=== PATIENT | male | born 1945 | race Caucasian/White ===

== ENCOUNTER 2023-05-17 06:28 | Day surgery (SDC) | payer MEDICARE ==
[~2023-05-17] VITALS: Ht 188 cm; Wt 100.0 kg
[~2023-05-17 06:28] MED LIST: AVAPRO300 MG PO; JANTOVEN4 MG PO; LOVASTATIN10 MG PO; NEBIVOLOL HCL5 MG PO
[2023-05-17 06:59] LABS: BILIRUBIN, URINE POSITIVE (negative); BLOOD/HGB, URINE SMALL (Negative); KETONE, URINE SMALL (Negative); LEUK ESTERASE, URINE NEGATIVE (negative); NITRITE, URINE NEGATIVE (negative); PH, URINE 5.5 (5-7)
[2023-05-17 07:05] LABS: BACTERIA, URINE RARE /hpf (negative); COLLECTION TYPE, URINE CLEAN CATCH; CRYSTALS, URINE NONE SEEN (0-1+); EPITHELIAL CELLS, URINE NS /lpf (0-1+); RED BLOOD CELLS, URINE 0-1 /hpf (0-5); WHITE BLOOD CELLS, URINE 0-1 /HPF (0-5)
[2023-05-17 07:06] LABS: REFLEX CULTURE, URINE No (No)
[2023-05-17 07:07] LABS: CASTS, URINE GRANULAR 1+ \\lpf
[2023-05-17 07:18] LABS: BASOPHILS 1.3 % (0-2); EOSINOPHILS 1.2 % (0-6); HEMOGLOBIN 12.8 g/dL (12.0-18.0); LYMPHOCYTES 7.6 % (24-44); MCH 31.5 (27-36); MCHC 32.8 g/dl (30-36); MCV 96.2 fl (81-99); MONOCYTES 6.5 % (0-12); NEUTROPHILS 83.4 % (39-80); PLATELET COUNT 164 K/uL (140-440); RBC 4.05 M/ul (4.3-5.7); RDW 14.2 (10.5-15.0)
[2023-05-17 07:25] VITALS: BP 148/75
[2023-05-17 07:27] LABS: ANION GAP 14.8 (7-21); BUN/CREATININE RATIO 14.96 (6.0-28.6); CALCIUM 9.6 mg/dL (8.5-10.1); CREATININE, SERUM 1.27 mg/dL (0.70-1.30); POTASSIUM 3.8 mmol/L (3.5-5.1)
[2023-05-17 07:30] LABS: INR 1.05 (0.80-1.30); PROTIME 13.2 Sec (11.2-14.2)
--- NOTE | 2023-05-17 07:54 | NUR ---
RESTING IN BED WITH EYES CLOSED. DID NOT DISTURB. PRAYED SILENT PRAYER FOR SUCCESSFUL PROCEDURE AND ONGOING HEALING.
--- NOTE | 2023-05-17 10:49 | NUR ---
05/17/23 1049 Rasheeda Brooks 1004 PT ARRIVED IN PACU WIDE AWAKE WITH NO C/O'S. 1010 C/O URGE TO VOID. URINAL GIVEN AND VOIDED 150ML CLEAR YELLOW URINE. 1020 PT VISITING WITH STAFF. 1034 TO DS. REPORT GIVEN TO RN.
[2023-05-17 10:51] VITALS: BP 126/61
--- NOTE | 2023-05-17 11:01 | NUR ---
1034: PT BACK TO DS RM 7 FROM PACU AWAKE AND ALERT. PT DENIES ANY PAIN OR NAUSEA ON ARRIVAL, PROVIDED ICED WATER. PT HAS URINAL IN PLACE WITH WASHCLOTH UNDER, STATES URGE TO VOID. DC CRITERIA EXPLAINED TO PT, CALL LIGHT WITHIN REACH. WILL PLAN TO CALL SPOUSE.
[2023-05-17 11:40] VITALS: BP 135/65
--- NOTE | 2023-05-17 12:09 | NUR ---
1140: PT SPOUSE IN ROOM AT BEDSIDE. PT CONT TO DENY ANY PAIN OR NAUSEA AND TOLERATES WATER BUT DOES NOT WANT ANYTHING TO EAT, STATES "I WANT A HAMBURGER ON THE WAY HOME!" PT SITS AT SIDE OF BED PRIOR TO STANDING, DENIES DIZZINESS WITH POSITION CHANGE AND AMBULATES WITH STEADY GAIT TO BATHROOM. PT BACK TO DS RM 7 FROM BATHROOM TO GET DRESSED, ENC TO OPEN CURTAIN WHEN FINISHED. 1155: PT OPENS CURTAIN AND SPOUSE EXITS TO PULL CAR TO HOSPITAL ENTRANCE. DC INSTRUCTIONS PRESENTED VERBALLY AND WRITTEN, Daniel ELENA RN PUSHES PT OUT TO PERSONAL CAR VIA WC TO HOME.
--- NOTE | 2023-05-17 12:47 | OR ---
[facility] [address] [place], [place] [address] Signed DATE OF OPERATION: 05/17/2023 SURGEON: Angel Reed MD PREOPERATIVE DIAGNOSIS: Prostate cancer with need for diagnostic cystoscopy after brachytherapy seed placement. POSTOPERATIVE DIAGNOSES: 1. Prostate cancer with need for diagnostic cystoscopy after brachytherapy seed placement. 2. No evidence of brachytherapy seed present within the bladder or within the entire length of the urethra. NAME OF PROCEDURE: Diagnostic cystoscopy. ANESTHESIA: General. ESTIMATED BLOOD LOSS: None. COMPLICATIONS: None. DRAINS: None. INDICATIONS FOR PROCEDURE: Mr. Duran is a 77-year-old gentleman, who is currently undergoing brachytherapy seed placement for treatment of his prostate cancer. Dr. Drew has asked me to perform a diagnostic cystoscopy after brachytherapy seed placement to ensure there are no radioactive seeds present within the bladder or urethra. OPERATIVE FINDINGS: 1. On cystoscopy, there was no evidence of any suspicious masses, lesions, or stones. Bilateral ureteral orifices are in their normal anatomic location. There is grade 1 bladder wall trabeculation present. There is no evidence of brachytherapy seeds either within the bladder or the entire length of the urethra. 2. Urethroscopy reveals a very short nonobstructing prostate. There was no evidence of Electronically Signed By: ANGEL REED MD 05/17/23 1247 PATIENT NAME: CARLITOS FREDERICK OPERATIVE REPORT DATE OF : 47 REPORT #: [id number] PHYSICIAN: ANGEL REED MD PCP: SELVIN GIRON REPORT IS CONFIDENTIAL AND NOT TO BE RELEASED WITHOUT AUTHORIZATION [facility] [address] [place], [place] [address] Signed any median lobe or significant lateral lobe hypertrophy. DESCRIPTION OF PROCEDURE: After informed consent was obtained, the patient was already in the dorsal lithotomy position after completing his brachytherapy seed placement. His genitalia were prepped and draped in a standard sterile fashion. A flexible cystoscope was inserted through his urethra and into his bladder under direct visualization. Panendoscopic views of bladder were then obtained. Please see the above findings. Once I thoroughly inspected the bladder, I slowly withdrew the cystoscope and visualized the entire length of the patient's urethra. I removed the scope and the procedure was complete. He tolerated this portion of the procedure well without any complication. He will now be transferred to the postanesthesia care unit in a stable condition. MD MARLENY Campbell/COREY /[id number] Copies: ~ Electronically Signed By: ANGEL REED MD 05/17/23 1247 PATIENT NAME: CARLITOS FREDERICK OPERATIVE REPORT DATE OF : 47 REPORT #: [id number] PHYSICIAN: ANGEL REED MD PCP: SELVIN GIRON REPORT IS CONFIDENTIAL AND NOT TO BE RELEASED WITHOUT AUTHORIZATION
--- NOTE | 2023-05-18 12:49 | OR ---
[facility] [address] [place] [place] [address] Signed DATE OF OPERATION: 05/17/2023 SURGEON: Annie Quevedo MD, PH.D. PREOPERATIVE DIAGNOSIS: Prostate adenocarcinoma. POSTOPERATIVE DIAGNOSIS: Prostate adenocarcinoma. PROCEDURE: Rectal ultrasound-guided implantation of radioactive iodine-125 seeds into the prostate gland. ANESTHESIA: General. ESTIMATED BLOOD LOSS: Minimal. COMPLICATIONS: None. ANTIBIOTICS: IV levofloxacin. INDICATIONS: Sander Sharif is a 77-year-old gentleman, who was diagnosed with a stage T2a, Tabitha grade 4 + 4 = 8, PSA 9.46, prostate adenocarcinoma. He was treated with neoadjuvant, concurrent, and adjuvant hormone therapy along with external beam radiation to the pelvic lymph nodes, seminal vesicles, and prostate gland to a dose of 45 Gy in [address] Gauthier ending on March 27, 2023. He now presents for a radioactive seed implant boost to the prostate gland. PRESCRIPTION DOSE: 110 Gy with iodine-125 seeds with 0.258 millicurie seeds. OPERATIVE DESCRIPTION: Following induction of adequate anesthesia, the patient was placed in the treatment planning dorsal lithotomy position. The perineum was prepped with Betadine and a Garcia Electronically Signed By: ANNIE QUEVEDO 05/18/23 1249 PATIENT NAME: SANDER SHARIF OPERATIVE REPORT DATE OF : 47 REPORT #: [id number] PHYSICIAN: ANNIE QUEVEDO PCP: SELVIN GIRON REPORT IS CONFIDENTIAL AND NOT TO BE RELEASED WITHOUT AUTHORIZATION [facility] [address] [place], [place] [address] Signed catheter was inserted into the bladder without difficulty. The scrotum was elevated onto the abdominal wall and secured with Ioban. The fixation support system was fixed to the table and the ultrasound probe was affixed to the system. Transrectal ultrasound examination of the prostate was performed with a 6 megahertz probe, taking sagittal and transverse views to localize the prostate gland and to make sure the images conformed to the preoperative plan. Once the proper angulation and position were obtained, the apparatus was fixed in position. The template was then attached to the apparatus. Then, individual preloaded needles were inserted, one needle at a time through the template and perineal skin and into the prostate gland according to the preoperative plan. Each individual needle was identified on the ultrasound images and inserted into position as close as possible to the pretreatment plan on axial images. Two anchor needles were placed initially to help stabilize the prostate gland. Then, starting anteriorly, one row of needles were placed 1st. The proper depth of each needle was then confirmed on sagittal images and also by measuring the distance from the template to the hub of each needle with a ruler. Then, needles were slowly withdrawn with the stylet in place so that stranded seeds were placed into the prostate gland in the proper position. Then, subsequently, rows of needles were placed, one at a time with placement of all the seeds from each row before proceeding to the next row. AP pelvic x-rays were taken periodically to confirm the proper position of the radioactive seeds. The treatment plan called for 56 seeds to be implanted, and a total of 56 seeds were placed into the prostate gland using a total of 16 needles for a total activity of 14.45 millicuries. There was initially some pubic arch interference encounter during the procedure, but this was resolved by moving the patient's legs into a more exaggerated dorsal lithotomy position. Following the insertion of the seeds, an AP pelvic x-ray was taken, which revealed seeds to be in the proper position within the pelvis. The patient then had a cystoscopy performed by Dr. Dawson (see separate operative report) with no seeds seen in the urethra or bladder. The patient tolerated the procedure well and was taken to the recovery room in good condition. The patient will have a voiding trial prior to discharge. The patient will follow up with me in one month and will also have a CT scan of the pelvis performed for dosimetric evaluation. He was told to phone our office if he has any difficulties. CONDITION: Stable. Electronically Signed By: ANNIE QUEVEDO 05/18/23 1249 PATIENT NAME: SANDER SHARIF OPERATIVE REPORT DATE OF : 47 REPORT #: [id number] PHYSICIAN: ANNIE QUEVEDO PCP: SELVIN GIRON REPORT IS CONFIDENTIAL AND NOT TO BE RELEASED WITHOUT AUTHORIZATION [facility] [address] [place] [address] Signed Annie Quevedo MD, PH.D. BETTY/NAYANL /[id number] cc: MD Selvin Petty Copies: NANCY GAUTHIER MD, DAVID M DR VANCE, DAVID ~ Electronically Signed By: ANNIE QUEVEDO 05/18/23 1249 PATIENT NAME: SANDER SHARIF OPERATIVE REPORT DATE OF : 47 REPORT #: [id number] PHYSICIAN: ANNIE QUEVEDO PCP: SELVIN GIRON REPORT IS CONFIDENTIAL AND NOT TO BE RELEASED WITHOUT AUTHORIZATION
--- NOTE | 2023-05-18 14:09 | EKG ---
[facility] [address] [facility] [place] [address] Signed Sinus rhythm with marked sinus arrhythmia Marked ST abnormality, possible inferior subendocardial injury Prolonged QT Abnormal ECG No previous ECGs available Confirmed by Roro Longo MD () on 05/18/2023 2:09:39 PM Electronically Signed By: RORO LONGO MD 05/18/23 1409 PATIENT NAME: YOLYCARLITOS Electrocardiogram DATE OF : 47 PHYSICIAN: RORO LONGO MD REPORT #: [id number] REPORT IS CONFIDENTIAL AND NOT TO BE RELEASED WITHOUT AUTHORIZATION
== END 2023-05-17 12:00 | disposition home or self-care (01) ==
LOC: DS 06:28 → US 07:00 → EDSTATUS 07:00 → DS 12:00
PROVIDERS: Nurse Anesthetist, Certified Registered; Urology; ATTEND Radiology Radiation Oncology
PROC: DV1 Radiation Therapy, Male Reproductive System, Brachytherapy (ICD-10-PCS; principal; 2023-05-17 08:00)
PROC: 0VH031Z Insertion of Radioactive Element into Prostate, Percutaneous Approach (ICD-10-PCS; 2023-05-17 08:00)
DX: C61 Malignant neoplasm of prostate (principal)
CPT/HCPCS: 00860; 36415; 76000; 76873; 77470; 80048; 81001; 85025; 85610; 93005; 93010; C2638; J0131; J1100; J1956; J2001; J2405; J2704; J3010; J3475; J3490; J7121